=== PATIENT | male | born 1985 | race Hispanic/Latino ===

== ENCOUNTER 2022-02-06 20:46 | Emergency (ER) | payer OTHER ==
[2022-02-06] MEDS ORDERED: traMADol HCl 50 MG TAB ONE (21:51)
[2022-02-06] MEDS ORDERED: Naproxen 500 MG TAB ONE (21:51)
== END 2022-02-06 22:15 ==
LOC: NAV ERS 20:46
DX: S62.241A Displaced fracture of shaft of first metacarpal bone, right hand, initial encounter for closed fracture (principal); S00.03XA Contusion of scalp, initial encounter; S00.83XA Contusion of other part of head, initial encounter; H11.31 Conjunctival hemorrhage, right eye; G40.909 Epilepsy, unspecified, not intractable, without status epilepticus; Z79.899 Other long term (current) drug therapy; Y04.0XXA Assault by unarmed brawl or fight, initial encounter
CPT/HCPCS: 29125; 70450; 70486